=== PATIENT | male | born 1960 | race Caucasian/White ===

== ENCOUNTER 2016-11-19 12:22 | Outpatient (CLI) ==
[2013-02-03 15:21] VITALS: TEMP 97.2
[2015-08-06 17:20] VITALS: BMI 36.1
[2016-11-19 13:47] LABS: BASOPHILS # (AUTO) 0.1 K/uL (0-0.2); BASOPHILS % (AUTO) 1.2 % (0.0-3.0); EOSINOPHILS # (AUTO) 0.1 K/ul (0.0-0.7); EOSINOPHILS % (AUTO) 1.4 % (0.0-7.0); HEMATOCRIT 43.3 % (42.0-52.0); IMMATURE GRANULOCYTE % (AUTO) 0.5 % (0.0-5.0); LYMPHOCYTES # (AUTO) 2.4 K/uL (0.60-3.4); LYMPHOCYTES % (AUTO) 36.1 (10.0-50.0); MEAN CORPUSCULAR HEMOGLOBIN 29.9 pg (27.0-31.0); MEAN CORPUSCULAR HGB CONC 34.6 (31.8-35.4); MEAN CORPUSCULAR VOLUME 86.3 fl (80.0-94.0); MONOCYTES # (AUTO) 0.5 K/uL (0.4-2.0); MONOCYTES % (AUTO) 7.6 (0-10); NEUTROPHILS # (AUTO) 3.5 K/ul (2.0-6.9); NEUTROPHILS % (AUTO) 53.2; PLATELET COUNT 269 10^3/uL (140-440); RED BLOOD COUNT 5.02 10^6/ul (4.70-6.10); WHITE BLOOD COUNT 6.54 K/ul (4.2-10.2)
[2016-11-19 14:43] LABS: ALBUMIN 3.9 g/dL (3.4-5.0); ALBUMIN/GLOBULIN RATIO 1.18; ANION GAP 11.7; BILIRUBIN,TOTAL 0.5 mg/dL (0.00-1.20); BUN/CREATININE RATIO 6.6; CALCIUM 9.9 mg/dL (8.2-10.2); CHOL/HDL RATIO 3.6 (4.5-6.4); CREATININE 1.06 mg/dL (0.60-1.10); POTASSIUM 3.7 mmol/L (3.5-5.1); TOTAL PROTEIN 7.2 g/dL (6.4-8.2)
== END 2016-11-19 12:23 | disposition home or self-care (01) ==
LOC: LAB 12:22
PROVIDERS: ATTEND Nurse Practitioner Family
DX: I10 Essential (primary) hypertension (principal); E78.5 Hyperlipidemia, unspecified; E11.9 Type 2 diabetes mellitus without complications; Z12.5 Encounter for screening for malignant neoplasm of prostate
CPT/HCPCS: 36415; 80053; 80061; 83036; 84443; 85025

== ENCOUNTER 2016-11-24 21:16 | Emergency (ER) ==
[2016-11-24 21:25] VITALS: TEMP 99.4; BMI 27.5
[2016-11-24] MEDS ORDERED: CATAPRES PO STA (21:32)
[2016-11-24] MEDS ORDERED: ATIVAN PO STA (21:32)
[2016-11-24 21:54] LABS: BASOPHILS # (AUTO) 0.1 K/uL (0-0.2); BASOPHILS % (AUTO) 0.7 % (0.0-3.0); EOSINOPHILS # (AUTO) 0.1 K/ul (0.0-0.7); EOSINOPHILS % (AUTO) 0.5 % (0.0-7.0); HEMATOCRIT 42.6 % (42.0-52.0); HEMOGLOBIN 15.2 g/dl (14.0-18.0); IMMATURE GRANULOCYTE % (AUTO) 0.2 % (0.0-5.0); LYMPHOCYTES # (AUTO) 3.1 K/uL (0.60-3.4); LYMPHOCYTES % (AUTO) 34.4 (10.0-50.0); MEAN CORPUSCULAR HEMOGLOBIN 29.9 pg (27.0-31.0); MEAN CORPUSCULAR HGB CONC 35.7 (31.8-35.4); MEAN CORPUSCULAR VOLUME 83.9 fl (80.0-94.0); MONOCYTES # (AUTO) 0.6 K/uL (0.4-2.0); MONOCYTES % (AUTO) 6.4 (0-10); NEUTROPHILS # (AUTO) 5.3 K/ul (2.0-6.9); NEUTROPHILS % (AUTO) 57.8; PLATELET COUNT 244 10^3/uL (140-440); RED BLOOD COUNT 5.08 10^6/ul (4.70-6.10); WHITE BLOOD COUNT 9.12 K/ul (4.2-10.2)
[2016-11-24 22:17] LABS: ALANINE AMINOTRANSFERASE 18 U/L (12-78); ALBUMIN 4.1 g/dL (3.4-5.0); ALBUMIN/GLOBULIN RATIO 1.28; ALKALINE PHOSPHATASE 77 U/L (50-136); ANION GAP 14.3; ASPARTATE AMINO TRANSFERASE 13 U/L (15-37); BILIRUBIN,TOTAL 0.59 mg/dL (0.00-1.20); BLOOD UREA NITROGEN 6 mg/dL (7-18); BUN/CREATININE RATIO 6.52; CALCIUM 9.5 mg/dL (8.2-10.2); CARBON DIOXIDE 26 mmol/L (21-32); CHLORIDE 102 mmol/L (98-107); CREATINE KINASE 56 U/L; CREATININE 0.92 mg/dL (0.60-1.10); GLUCOSE 87 mg/dL (70-100); POTASSIUM 3.3 mmol/L (3.5-5.1); SODIUM 139 mmol/L (136-145); TOTAL PROTEIN 7.3 g/dL (6.4-8.2)
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
[2016-11-24 22:40] VITALS: BP 140/84
== END 2016-11-24 22:40 | disposition home or self-care (01) ==
LOC: ED 21:16
DX: F41.9 Anxiety disorder, unspecified (principal); I10 Essential (primary) hypertension; E11.9 Type 2 diabetes mellitus without complications; E78.5 Hyperlipidemia, unspecified; N18.9 Chronic kidney disease, unspecified; Z79.899 Other long term (current) drug therapy
CPT/HCPCS: 36415; 80053; 82550; 84484; 85025; 93005; 93010; 99283

== ENCOUNTER 2016-12-05 16:24 | Outpatient (CLI) ==
[2013-02-03 15:21] VITALS: TEMP 97.2
== END 2016-12-05 16:25 ==
LOC: AMBL 16:24
PROVIDERS: ATTEND Internal Medicine
DX: T46.4X2A Poisoning by angiotensin-converting-enzyme inhibitors, intentional self-harm, initial encounter (principal); T42.4X2A Poisoning by benzodiazepines, intentional self-harm, initial encounter; F32.9 Major depressive disorder, single episode, unspecified; I10 Essential (primary) hypertension; E11.9 Type 2 diabetes mellitus without complications; Z89.511 Acquired absence of right leg below knee

== ENCOUNTER 2017-06-04 12:29 | Outpatient (CLI) ==
[2013-02-03 15:21] VITALS: TEMP 97.2
[2017-06-04 12:59] LABS: BASOPHILS # (AUTO) 0.1 K/uL (0-0.2); BASOPHILS % (AUTO) 0.8 % (0.0-3.0); EOSINOPHILS # (AUTO) 0.1 K/ul (0.0-0.7); EOSINOPHILS % (AUTO) 1.6 % (0.0-7.0); HEMOGLOBIN 14.4 g/dl (14.0-18.0); IMMATURE GRANULOCYTE % (AUTO) 0.3 % (0.0-5.0); LYMPHOCYTES # (AUTO) 3.2 K/uL (0.60-3.4); LYMPHOCYTES % (AUTO) 36.7 (10.0-50.0); MEAN CORPUSCULAR HEMOGLOBIN 30.1 pg (27.0-31.0); MEAN CORPUSCULAR HGB CONC 35.1 (31.8-35.4); MEAN CORPUSCULAR VOLUME 85.6 fl (80.0-94.0); MONOCYTES # (AUTO) 0.6 K/uL (0.4-2.0); MONOCYTES % (AUTO) 6.4 (0-10); NEUTROPHILS # (AUTO) 4.7 K/ul (2.0-6.9); NEUTROPHILS % (AUTO) 54.2; PLATELET COUNT 202 10^3/uL (140-440); RED BLOOD COUNT 4.79 10^6/ul (4.70-6.10); WHITE BLOOD COUNT 8.61 K/ul (4.2-10.2)
[2017-06-04 13:29] LABS: ALBUMIN 3.5 g/dL (3.4-5.0); ALBUMIN/GLOBULIN RATIO 1.03; ANION GAP 12.5; BILIRUBIN,TOTAL 0.76 mg/dL (0.00-1.20); BUN/CREATININE RATIO 13.97; CALCIUM 9.6 mg/dL (8.2-10.2); CHOL/HDL RATIO 5.6 (4.5-6.4); CREATININE 1.36 mg/dL (0.60-1.10); POTASSIUM 4.5 mmol/L (3.5-5.1); TOTAL PROTEIN 6.9 g/dL (6.4-8.2)
--- NOTE | 2017-06-04 13:59 | DI ---
EXAM: Radiographs, lumbar spine HISTORY: Low back pain. COMPARISON: 06/25/2013. TECHNIQUE: Five views. FINDINGS: Curvature and alignment are normal. Vertebral body heights are maintained. There is mode rate loss of disc height at L5-S1. Multilevel endplate osteophyte formation is greatest at L5-S1. M ultilevel facet arthropathy noted, greater in the lower lumbar spine. No fracture or subluxation yara ntified. Sacral arcuate lines are intact. Atherosclerotic calcifications present. IMPRESSION: Multilevel degenerative changes, greatest at L5-S1.
== END 2017-06-04 12:30 | disposition home or self-care (01) ==
LOC: LAB 12:29
PROVIDERS: ATTEND Nurse Practitioner Family
DX: M54.5 Low back pain (principal); E78.5 Hyperlipidemia, unspecified; I10 Essential (primary) hypertension; Z12.5 Encounter for screening for malignant neoplasm of prostate; Z86.39 Personal history of other endocrine, nutritional and metabolic disease
CPT/HCPCS: 36415; 80053; 80061; 85025

== ENCOUNTER 2017-06-05 14:00 | Outpatient (CLI) ==
[2013-02-03 15:21] VITALS: TEMP 97.2
--- NOTE | 2017-06-06 21:54 | MRI ---
EXAM: Lumbar spine MRI without contrast. HISTORY: Low back pain. COMPARISON: Lumbar spine radiographs 06/04/2017 and lumbar spine MRI 06/25/2013. TECHNIQUE: Multiplanar, multisequence MR images were acquired of the lumbar spine without contrast. FINDINGS: Five non-rib bearing lumbar vertebra are present. There is straightening of the usual lum bar lordosis and there is a trace retrolisthesis of L1 on L2, L4 on L5 and L5 on S1. The lumbar vert ebra are normal in height and intrinsic bone marrow signal. Small ventral and lateral osteophytes ar e present in the lumbar spine and there is disc desiccation from L3-4 to L5-S1. There is mild irregul ar concavity of the endplates at T11-12 and T12-L1 with tiny chronic Schmorl's nodes along the inferi or T11 and T12 end plates. At L4-5, there is minor irregular concavity along the left lateral endplat es with faint focal bright STIR signal edema. At L5-S1, there is osteophytosis with moderate disc spa ce narrowing, mild to moderate irregularity and reactive fatty marrow changes along the anterior endp lates. Conus medullaris ends at the top of L2 and has normal signal intensity. The canal diameter i s developmentally narrow due to congenitally short pedicles. The partially visualized liver, spleen and kidneys are unremarkable. There are no paravertebral mass es. T12-L1: The intervertebral disc is normal. L1-2: There is a mild disc bulge and a small central disc protrusion and annular tear (axial image # 9 series 11) that is slightly asymmetric to the right that is unchanged compared to previously allowi ng for small size and differences in slice selection. There is minor right neural foraminal stenosis and a small left perineural cyst. L2-3: There is a minor disc bulge that minimally narrows the inferior neural foramina bilaterally an d minor bilateral facet arthropathy and ligamentum flavum hypertrophy. There is mild right and minor left foraminal stenosis. L3-4: There is a mild disc bulge that is asymmetric to the right and mild bilateral hypertrophic fac et arthropathy and ligamentum flavum hypertrophy. There is mild to moderate bilateral foraminal sten osis. There is no central canal stenosis. L4-5: There is a mild to moderate diffuse disc bulge with a small central disc protrusion and annula r tear and marginal osteophytes that narrow the inferior neural foramina bilaterally and encroach on both exiting L4 nerves. Moderate bilateral hypertrophic facet arthropathy is present and there is a small synovial cyst or erosion along the posterior right facet joint. These findings produce mild spi nal stenosis and mild to moderate bilateral foraminal stenosis. AP diameter of the thecal sac is 8.3 mm. L5-S1: There is a moderate spondylotic disc bulge with endplate osteophytes and a probable small rig ht posterolateral disc protrusion versus asymmetry of the disc bulge. The bulging disc mildly compre sses the S1 nerve roots bilaterally. Mild bilateral facet arthropathy and ligamentum flavum hypertro phy is present and there is mild to moderate bilateral neural foraminal stenosis. There is no centra l canal stenosis. IMPRESSION: 1. No change mild to moderate lumbar degenerative spondylosis and mild spinal stenosis at L4-5. 2. Small central disc protrusions L1-2 and L4-5. 3. Mild to moderate bilateral L3-4, L4-5 and L5-S1 neural foraminal stenosis.
== END 2017-06-05 14:01 | disposition home or self-care (01) ==
LOC: RAD 14:00
PROVIDERS: ATTEND Nurse Practitioner Family
DX: M54.5 Low back pain (principal)

== ENCOUNTER 2017-06-05 16:59 | Emergency (ER) | payer OTHER ==
[2017-06-05 17:03] VITALS: BP 157/79; TEMP 96.9; BMI 33.7
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
[2017-06-05] MEDS ORDERED: ZOFRAN 4 MG/2 ML IM STA (18:48)
[2017-06-05] MEDS ORDERED: MORPHINE 2 MG/ML SYRINGE IM STA (18:48)
== END 2017-06-05 19:40 | disposition home or self-care (01) ==
LOC: ED 16:59
DX: M54.42 Lumbago with sciatica, left side (principal); M54.41 Lumbago with sciatica, right side
CPT/HCPCS: 96372; 99283

== ENCOUNTER 2017-09-09 15:40 | Outpatient (CLI) ==
[2013-02-03 15:21] VITALS: TEMP 97.2
== END 2017-09-09 15:41 | disposition home or self-care (01) ==
LOC: LAB 15:40
PROVIDERS: ATTEND Nurse Practitioner Family
DX: E78.5 Hyperlipidemia, unspecified (principal); R73.09 Other abnormal glucose; I10 Essential (primary) hypertension; Z12.5 Encounter for screening for malignant neoplasm of prostate
CPT/HCPCS: 36415; 80053; 80061; 83036; 85025

== ENCOUNTER 2017-12-11 15:26 | Outpatient (CLI) | payer OTHER ==
[2013-02-03 15:21] VITALS: TEMP 97.2
--- NOTE | 2017-12-11 16:20 | DI ---
EXAM: CHEST FRONTAL AND LATERAL VIEWS HISTORY: Bronchitis. COMPARISON: 02/05/2014 FINDINGS: Heart size remains within normal limits. Bones appear mildly hyperinflated. There is a di scoid density above the left hemidiaphragm which could be related to a pericardial fat pad although w as not definitely seen on the prior exams. Focal pleural fluid or conceivably pneumonia or mass not completely excluded. Lungs are otherwise unremarkable. No vascular congestion. IMPRESSION: Density in the left base is indeterminate. Consider follow-up chest radiography for clarification.
== END 2017-12-11 15:27 | disposition home or self-care (01) ==
LOC: RAD 15:26
PROVIDERS: ATTEND Nurse Practitioner Family
DX: J40 Bronchitis, not specified as acute or chronic (principal); R05 Cough

== ENCOUNTER 2017-12-15 07:23 | Outpatient (CLI) | payer OTHER ==
[2013-02-03 15:21] VITALS: TEMP 97.2
--- NOTE | 2017-12-15 08:51 | CT ---
EXAM: CT of the chest with and without contrast History: Abnormal chest radiograph Comparison: Chest radiograph 12/11/2017 Technique: Multiplanar CT images through the thorax were obtained with and without the administratio n of IV contrast Findings: Heart size is normal. Coronary calcifications. No pericardial effusion. Scattered areas of subsegmental atelectasis. No pleural fluid and no pneumothorax. No suspicious lung masses or lung nodules. Great vessels are unremarkable. No thoracic adenopathy. Within the visualized upper abdomen, the liver is fatty. No acute osseous abnormalities. Impression: 1. No acute intrathoracic process. 2. Scattered areas of subsegmental atelectasis. 3. No suspicious lung masses or lung nodules. 4. Hepatic steatosis
== END 2017-12-15 07:24 | disposition home or self-care (01) ==
LOC: RAD 07:23
PROVIDERS: ATTEND Nurse Practitioner Family
DX: R93.8 Abnormal findings on diagnostic imaging of other specified body structures (principal); R05 Cough; I10 Essential (primary) hypertension; R73.09 Other abnormal glucose; E78.5 Hyperlipidemia, unspecified
CPT/HCPCS: 36415; 80053; 80061; 83036; 85025

== ENCOUNTER 2018-03-31 15:39 | Outpatient (CLI) ==
[2013-02-03 15:21] VITALS: TEMP 97.2
== END 2018-03-31 15:40 | disposition home or self-care (01) ==
LOC: RHC-LAB 15:39
PROVIDERS: ATTEND Nurse Practitioner Family
DX: M54.9 Dorsalgia, unspecified (principal); G89.29 Other chronic pain; I10 Essential (primary) hypertension; E78.5 Hyperlipidemia, unspecified; R73.9 Hyperglycemia, unspecified; Z79.899 Other long term (current) drug therapy
CPT/HCPCS: 36415; 80053; 80061; 80306; 81001; 83036; 85025

== ENCOUNTER 2018-10-07 11:27 | Outpatient (CLI) ==
[2013-02-03 15:21] VITALS: TEMP 97.2
--- NOTE | 2018-10-07 14:32 | DI ---
EXAM: LEFT HIP, 2 VIEWS HISTORY: Left hip pain FINDINGS: Hip joint is within normal limits. No fracture or dislocation is seen. There is mild art hropathy of the visualized sacroiliac joints. Soft tissues within normal limits. IMPRESSION: 1. Hip is within normal limits. 2. Early arthropathy of the sacroiliac joints.
== END 2018-10-07 11:28 | disposition home or self-care (01) ==
LOC: RHC-LAB 11:27
PROVIDERS: ATTEND Nurse Practitioner Family
DX: E78.5 Hyperlipidemia, unspecified (principal); M25.552 Pain in left hip; I10 Essential (primary) hypertension; Z12.5 Encounter for screening for malignant neoplasm of prostate
CPT/HCPCS: 36415; 80053; 80061; 85025

== ENCOUNTER 2019-01-22 13:32 | Outpatient (CLI) | payer OTHER ==
[2013-02-03 15:21] VITALS: TEMP 97.2
== END 2019-01-22 13:33 | disposition home or self-care (01) ==
LOC: RHC-LAB 13:32 → FCC-LAB 13:33
PROVIDERS: ATTEND Family Medicine
DX: B35.1 Tinea unguium (principal)
CPT/HCPCS: 87101